=== PATIENT | male | born 1985 | race Caucasian/White ===

== ENCOUNTER 2019-04-26 13:46 | Inpatient (IN) ==
[2019-04-26] MEDS ORDERED: ZOFRAN ODT PO ONE (14:22)
[2019-04-26 14:45] LABS: BASO# 0.02 X1000 (0.0-0.2); BASO% 0.2 % (0.0-0.8); EOS# 0.03 X1000 (0.0-0.7); EOS% 0.3 % (0.0-10.0); HEMOGLOBIN 15.2 g/dL (14.0-18.0); IMM GRAN# 0.01 X1000 (0.0-0.04); IMM GRAN% 0.1 % (0.0-0.5); LYMPH# 1.45 X1000 (1.2-3.4); LYMPH% 15.7 % (20.5-51.1); MCH 29.6 PG (27-31); MCHC 33.8 g/dL (33-37); MCV 87.5 FL (81-99); MONO# 0.66 X1000 (0.11-0.59); MONO% 7.1 % (1.7-9.3); MPV 8.9 FL (7.4-10.4); NEUT# 7.09 X1000 (1.4-6.5); NEUT% 76.6 % (42.2-75.2); PLT 294 X1000 (130-400); RBC 5.14 XMIL (4.7-6.1); RDW 12.7 % (11.5-14.5); WBC 9.26 X1000 (4.8-10.8)
[2019-04-26 14:47] LABS: URINE SOURCE CLEAN CATCH
[2019-04-26 14:49] LABS: BILIRUBIN URINE NEGATIVE (NEGATIVE); BLOOD URINE MODERATE (NEGATIVE); COLOR YELLOW; GLUCOSE URINE NEGATIVE (NEGATIVE); KETONE URINE NEGATIVE (NEGATIVE); LEUKOCYTES URINE NEGATIVE (NEGATIVE); NITRITE URINE NEGATIVE (NEGATIVE); PROTEIN URINE 70 mg/dL (NEGATIVE); SP GRAVITY URINE 1.026; TURBIDITY URINE CLEAR (CLEAR); UR EPITHELIAL CELLS <10 /HPF (<10); URINE BACTERIA NEGATIVE /HPF; URINE RBC <10 /HPF (<10); URINE WBC <10 /HPF (<10); UROBILINOGEN URINE NORMAL (NORMAL)
[2019-04-26 15:08] LABS: AGAP 11; ALBUMIN 4.9 g/dL (3.5-5.0); ALKALINE PHOSPHATASE 82 U/L (32-122); BUN 10 mg/dL (8-22); CALCIUM 9.8 mg/dL (8.8-10.2); CHLORIDE 97 mmol/L (98-107); COSMO 276; CREATININE 1.1 mg/dL (0.7-1.2); ESTIMATED GFR > 60; GLUCOSE 92 mg/dL (70-104); GOT 297 U/L (10-34); GPT 102 U/L (10-44); LIPASE 13 U/L (13-60); POTASSIUM 3.9 mmol/L (3.5-5.1); SODIUM 139 mmol/L (136-145); TCO2 31 mmol/L (25-35); TOTAL PROTEIN 7.7 g/dL (6.3-8.3)
--- NOTE | 2019-04-26 15:19 | EKG Report ---
Test Performed on : 04/26/2019 2:27:31 PM Test Reason : Epigastric pain Blood Pressure : / mmHG Vent. Rate : 065 BPM Atrial Rate : 065 BPM P-R Int : 152 ms QRS Dur : 076 ms QT Int : 366 ms P-R-T Axes : 076 022 074 degrees QTc Int : 380 ms Normal sinus rhythm. Nonspecific T wave abnormality Abnormal ECG No previous ECGs available Unconfirmed Result
[2019-04-26 15:21] LABS: CK PROFILE > 20000 U/L (24-204)
[2019-04-26] MEDS ORDERED: NS 1,000 ML IV ONE (15:30)
[2019-04-26] MEDS: NS 1,000 ML IV ONE ×2 (15:51→17:08)
[2019-04-26 15:52] LABS: CK-MB 3.93 ng/mL (0.0-5.0)
--- NOTE | 2019-04-26 16:05 | PROVIDER DOCUMENTATION ---
This chart was entered by Kenisha Ruiz Scribe, acting as scribe for Bety Ko CRNP. HPI-Abdominal Pain/GI Problem - General Chief Complaint: Nausea/Vomiting Stated Complaint: ACID REFLUX/ABD PAIN Time Seen by Provider: 04/26/19 14:04 Source: patient Allergies/Adverse Reactions: Patient Allergies Allergy/AdvReac Type Severity Reaction Status Date / Time No Known Allergies Allergy Verified 04/26/19 14:10 Home Medications: Home Medication List Medication Instructions Recorded Confirmed Last Taken Type Levothyroxine Sodium 125 mcg PO QAM 02/01/19 04/26/19 Unknown History - History of Present Illness-ABD Nature of Presenting Problems: Patient is a 33yo M who presents with complaints of acid reflux, epigastric abdominal pain, nausea, and vomiting x4 days. Reports nausea is worse in the m orning. States he was previously diagnosed with GERD and took Prilosec but stopped years ago. Reports hx chronic diarrhea. Denies fever, CP, or SOB. Reports hx of throat cancer 10+ years ago and recently had a negative MRI. Non- toxic in appearance. Abdominal Pain Onset Location: reports: epigastric Pain Radiation: reports: no radiation Quality of Pain: reports: burning (with nausea) Severity in ED: reports: moderate Onset/Duration: reports: 4 days ago Timing: reports: still present, intermittent Activities at Onset: reports: light activity Exposure to sick contacts?: No Modifying Factors: improves with: antacids (minimal improvement) Associated Symptoms: reports: diarrhea (chronic), heartburn, nausea, vomiting. denies: back/neck pain, chest pain, fever/chills, shortness of breath Last BM: last night Dark Stools Present?: reports: none noticed Rectal Bleeding: reports: none # of Diarrhea Episodes: 2 Rectal Pain: reports: none # of Vomiting Episodes: 1 Emesis Description: reports: other (bile) Bruising or Bleeding Gums?: No Similar Symptoms Previously?: Yes Recently seen or treated by another doctor?: Yes (saw oncology 2 months prior for a scan) Review of Systems - Adult - REVIEW OF SYSTEMS - ADULT Constitutional: denies: chills, fever Eyes: reports: no symptoms reported Ears, Nose, Mouth & Throat: reports: no symptoms reported Cardiovascular: denies: chest pain, palpitations Respiratory: denies: cough, shortness of breath, wheezing Gastrointestinal: reports: see HPI, abdominal pain, diarrhea, frequent heartburn , nausea, vomiting Genitourinary: reports: no symptoms reported Musculoskeletal: denies: back pain, neck pain Integumentary: reports: no symptoms reported Neurological: reports: no symptoms reported Psychiatric: reports: no symptoms reported Endocrine: reports: no symptoms reported Past History - Adult - PAST MEDICAL HISTORY-ADULT Review of Records: reports: Nursing Assessment Review, Medications Reviewed, Social history reviewed & non-contributory. Major Childhood Illnesses: reports: denies history Cardiovascular: reports: denies history Respiratory: reports: denies history Gastrointestinal: reports: cancer (esophageal), GERD Genitourinary: reports: denies history Musculoskeletal: reports: arthritis, other fractures, orthopedic injury Hand Dominance: Right Handed Neurological: reports: denies history Psychiatric: reports: denies history Endocrine/Immune: reports: cancer (throat) Other Conditions: reports: other cancer (throat ca tx w/rx and chemo 2009) - PRIOR SURGERIES/PROCEDURES Surgical/Procedure History: reports: reviewed, not pertinent - PRIOR HOSPITALIZATIONS Prior Hospitalizations: reports: for other non-related - IMMUNIZATION STATUS Childhood Immunizations: See Nurse Assessment Flu Vaccine: See Nurse Assessment - FAMILY HISTORY Family History: reviewed, not pertinent - SOCIAL HISTORY Smoking: quit greater than 1 year Substance Use: alcohol, marijuana Alcohol Use Frequency: once a month Number of drinks per typical drinking period:: 3-4 drinks Living Situation: family Physical Exam-General - PHYSICAL EXAM-ADULT Initial Vital Signs Reviewed: Yes - CONSTITUTIONAL General Appearance: appears well, alert, no apparent distress, thin. negative: lethargic, slow to respond, obtunded - EYES Eyes: PERRL/EOMI, pink conjunctivae. negative: EOM palsy, scleral icterus - HEAD, EARS, NOSE, MOUTH & THROAT HENMT: normocephalic/atraumatic, moist mucous membranes, other (raspy voice but is baseline per patient since throat cancer 4 years prior. pt had scan 2 months prior and was cancer free). negative: angioedema - NECK Neck: non-tender, full range of motion, supple, normal inspection - RESPIRATORY Respiratory: chest non-tender, lungs clear, normal breath sounds, no pleuratic chest pain, no respiratory distress, no accessory muscle use. negative: crackles, rales, rhonchi, stridor, wheezing - CARDIOVASCULAR Cardiovascular: normal peripheral pulses, regular rate, rhythm - CHEST (BREASTS) Chest/Breast: deferred - GASTROINTESTINAL (ABDOMEN) Abdominal Exam: normal bowel sounds, soft, tenderness (epigastric TTP), other (c/o nausea). negative: guarding, rigid, rebound - GENITOURINARY Male Genitalia: deferred Rectal Exam: deferred Hemoccult Exam: deferred - LYMPHATIC Lymphatic: no adenopathy - MUSCULOSKELETAL Back Exam: no CVA tenderness, no vertebral tenderness Extremity: normal range of motion, non-tender, normal gait, normal inspection - SKIN Integumentary: normal color, warm/dry. negative: cyanosis, jaundice, mottled, pallor - NEUROLOGIC Neurologic: grossly normal. negative: abnormal gait, aphasia, EOM palsy - PSYCHIATRIC Psych/Mental Status: normal mood/affect, normal thought content, normal thought process, oriented x 3 Progress - PLAN OF CARE/RESULTS Progress/Plan/Lab Results: Vital Signs - 8 hr 04/26/19 13:57 Temperature 97.9 F Pulse Rate 83 Respiratory Rate 16 Blood Pressure 120/82 O2 Sat by Pulse Oximetry 98 Lab results, imaging results, and need for admission discussed with patient who agrees with and verbalizes understanding. Result Diagrams: 04/26/19 14:34 04/26/19 14:34 - REASSESSMENT Reassessment #1 Time Reassessed: 15:01 (pt is resting in the bed) Status: unchanged Reassessment #2 Time Reassessed: 17:09 (pt feels some better family is with him at bedside) Status: improving - EKG 1 Time of EKG reading by physician:: 14:27 EKG Read and Signed by:: Cindy Mcelroy EKG Interpretation (*Must complete 3 of following elements*): Abnormal Rate: 65 Rhythm: nsr Deshler: normal QRS: normal WI Interval: normal ST Wave: normal Comments: nonspecific T wave abnormality - CT/MRI 1 CT Study: Abdomen, Pelvis Impression: See EMR Report ([facility] - [address], [address], [place] [address] [facility] - [address] [place] [address] Department of Imaging Patient: PAYAL ROLDAN Date: 04/26/19MR#: [id number] : 1985ADM Status: REG ERAt#: [id number] Age/Sex: 33/MRoom/Bed: Loc: P.ED Ordering Physician: Bety Baker Family Physician: Jacob Rubio MD Reason for Procedure: Epigastric pain; elevated liver enzymes Signed EXAM: CT ABD/PELVIS W/IV CONT ONLY HISTORY: Epigastric pain; elevated liver enzymes TECHNIQUE: CT abdomen and pelvis with intravenous contrast, but without oral contrast. COMPARISON: None. FINDINGS: Tiny left basilar infiltrates. No calcified gallstones or adjacent inflammation. No focal hepatic abnormality. Normal spleen, pancreas, adrenal glands, and kidneys. No hydronephrosis. Normal aorta. No bowel obstruction. The appendix is not clearly identified. No abscess. The urinary bladder is only mildly distended. Normal prostate. IMPRESSION: Tiny left basilar infiltrates. No definite he patic abnormality This exam was performed using automated exposure control, adjustment of mA or kV according to patient size, and/or use of iterative reconstruction technique. Electronically signed by Bong Lazcano 04/26/2019 4:52 PM 04/26/19 1652 Interpreting Physician: Bong Lazcano MD Dictated Date/Time: 04/26/19 1649 cc: Bety Ko; Jacob Rubio MD) - CONSULTS/PCP/HOSPITALIST Notification #1 *Consult/PCP/Hospitalist*: hospitalist dr mock Time Discussed: 17:08 Reason/Comments: Rhabdomyolysis; elevated LFTs; hematuria Consult Disposition: Will see in ED, Admit Departure - Departure Date of Disposition Decision: 04/26/19 Time of Disposition Decision: 17:08 DIAGNOSIS: Epigastric pain, Elevated liver enzymes Rhabdomyolysis Qualifiers: Rhabdomyolysis type: non-traumatic Qualified Code(s): M62.82 - Rhabdomyolysis Nausea and vomiting Qualifiers: Vomiting type: unspecified Vomiting Intractability: unspecified Qualified Code( s): R11.2 - Nausea with vomiting, unspecified Hematuria Qualifiers: Hematuria type: unspecified type Qualified Code(s): R31.9 - Hematuria, unspecified Disposition: ADMITTED INPATIENT 09 Certified Medical Emergency: Emergent Condition: Stable Referrals and Follow-Ups: Jacob Rubio MD [Primary Care Provider] - - Critical Care Note This patient required my direct & personal management of CC.: Yes Total Time (mins): 45 Critical Care Statement: This patient required my direct personal management to treat or rule out processes, the absence of which, could potentiallly result in sudden, clinically significant life or limb threatening deterioration. Attestation - Physician/ SHEBA Attestation Patient care was provided by Advanced Practice Provider:: Yes Advanced Practice Provider:: Bety Ko Advanced Practice Provider documentation review:: The Mid-level provider documentation, treatment plan and medical decision making was reviewed by the physician who agrees with all treatment and medical decision making by the MLP. The physician spent face to face time with patient:: No Advanced Practice Provider documentation review:: Supervising physician onsite and consulted in the evaluation and care of this patient. The physician did not have a face to face encounter with the patient. This chart was documented by the indicated scribe, (Kenisha Ruiz Scribe) and accurately reflects the services I performed and decisions made by me, Bety Ko CRNP, as attested by the provider's signature.
--- NOTE | 2019-04-26 16:54 | Diag Imaging Result Doc PS360 ---
EXAM: CT ABD/PELVIS W/IV CONT ONLY HISTORY: Epigastric pain; elevated liver enzymes TECHNIQUE: CT abdomen and pelvis with intravenous contrast, but without oral contrast. COMPARISON: None. FINDINGS: Tiny left basilar infiltrates. No calcified gallstones or adjacent inflammation. No focal hepatic abnormality. Normal spleen, pancreas, adrenal glands, and kidneys. No hydronephrosis. Normal aorta. No bowel obstruction. The appendix is not clearly identified. No abscess. The urinary bladder is only mildly distended. Normal prostate. IMPRESSION: Tiny left basilar infiltrates. No definite hepatic abnormality This exam was performed using automated exposure control, adjustment of mA or kV according to patient size, and/or use of iterative reconstruction technique. Electronically signed by Bong Lazcano 04/26/2019 4:52 PM
[2019-04-26] MEDS ORDERED: TYLENOL PO PRN (18:10)
[2019-04-26] MEDS ORDERED: SODIUM BICARBONATE 8.4% 150 MEQ in D5W 1,000 ML IV SCH (20:00)
[2019-04-26] MEDS: ZOFRAN IV PRN (20:39)
[2019-04-26] MEDS: NS 1,000 ML IV SCH (20:47)
--- NOTE | 2019-04-26 21:50 | HISTORY AND PHYSICAL ---
CHIEF COMPLAINT: Nausea. HISTORY OF PRESENT ILLNESS: The patient is a 33-year-old male who has a known history of GI issues. He has chronic reflux. He has been having some epigastric pain for the past couple of days as well as nausea and vomiting. He presented to the hospital secondary to that. He did take Prilosec years ago, but stopped it. Notes he has chronic diarrhea. He has difficulty swallowing due to his throat cancer 10 years ago. He denies taking any creatine or muscle supplements. Does note that he did 50 or so pushups yesterday to impress his cousin. Notes that his urine is always dark. REVIEW OF SYSTEMS: As noted above. The patient does note that he saw his oncologist 2 months ago and was told that he was still clear from cancer. Denies any chest pain or palpitation. Denies any fevers or chills. Denies any headaches, blurred vision, change in vision. Denies any focalized numbness, tingling, weakness. Does note that he aches all over, but does not have any significant muscle aches. States his urine is always dark. Denies any hematuria, hematemesis, hematochezia, or melena. Does have chronic diarrhea that has not really changed. 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 Has history of reflux. FAMILY HISTORY: Noncontributory. SOCIAL HISTORY: He does note that he drinks on a regular basis. Does use marijuana occasionally. States he stopped smoking approximately a year ago. He is currently employed. PHYSICAL EXAMINATION: VITAL SIGNS: Reviewed. Temperature 97.9 degrees, pulse 83, respiratory rate 16, BP 120/82, saturating 98% on room air. GENERAL: Patient is awake, pleasant. He is in no current respiratory distress. He is sitting up on the side of the bed. HEENT: Normocephalic. NECK: Supple. CARDIOVASCULAR: Regular rate. CHEST: Clear and nonlabored. ABDOMEN: Soft, nontender, and nondistended. EXTREMITIES: Moves all extremities well. No edema. NEUROLOGIC: No focal neurological changes. SKIN: Warm and dry. No rashes. LABORATORIES: CBC and CMP effectively normal. His CPK is elevated at greater than 20,000. AST 297, ALT 102. ASSESSMENT: 1. Acute rhabdomyolysis of undetermined origin, likely secondary to his increased physical activity, as well as his decreased oral intake. 2. Acute hepatitis of undetermined origin. Patient does have a longstanding history of drinking and his AST is 3 times his ALT, which certainly could relate to that. PLAN: We are going to admit patient to the hospital, place him on Librium p.r.n., and we are going to start bicarbonate drip and intravenous fluids. Recheck in the a.m. Further orders as needed. cc: Mason Franklin MD
[2019-04-26] MEDS ORDERED: SODIUM BICARBONATE 8.4% ONE (23:59)
[2019-04-27] MEDS ORDERED: D5W 1,000 ML ONE
[2019-04-27] MEDS: NS 1,000 ML IV SCH ×4 (04:36→21:28)
[2019-04-27] MEDS: SYNTHROID PO SCH ×2 (06:48)
[2019-04-27] MEDS: PRILOSEC PO SCH (06:50)
[2019-04-27 06:55] LABS: HEMATOCRIT 44.3 % (42.0-52.0); HEMOGLOBIN 14.7 g/dL (14.0-18.0); MCH 28.9 PG (27-31); MCHC 33.2 g/dL (33-37); MCV 87.2 FL (81-99); MPV 9.3 FL (7.4-10.4); RBC 5.08 XMIL (4.7-6.1); RDW 12.6 % (11.5-14.5); WBC 7.75 X1000 (4.8-10.8)
[2019-04-27] MEDS ORDERED: SYNTHROID PO SCH (07:00)
[2019-04-27] MEDS: ZOFRAN IV PRN ×2 (07:12→21:28)
[2019-04-27 07:13] LABS: AGAP 11; ALBUMIN 4.3 g/dL (3.5-5.0); ALKALINE PHOSPHATASE 74 U/L (32-122); BUN 8 mg/dL (8-22); CALCIUM 9.1 mg/dL (8.8-10.2); CHLORIDE 98 mmol/L (98-107); COSMO 276; CREATININE 0.9 mg/dL (0.7-1.2); ESTIMATED GFR > 60; GLUCOSE 98 mg/dL (70-104); GOT 246 U/L (10-34); GPT 90 U/L (10-44); POTASSIUM 4.1 mmol/L (3.5-5.1); SODIUM 139 mmol/L (136-145); TCO2 29 mmol/L (25-35); TOTAL PROTEIN 7.1 g/dL (6.3-8.3)
[2019-04-27 07:55] LABS: CK-MB 2.52 ng/mL (0.0-5.0)
--- NOTE | 2019-04-27 08:37 | Diag Imaging Result Doc PS360 ---
EXAM: US ABDOMEN-COMPLETE - 04/27/2019 HISTORY: elevated wbc TECHNIQUE: Ultrasound abdomen COMPARISON: 04/26/2019 CT abdomen/pelvis FINDINGS: There are no abnormalities of the liver or spleen identified. Doppler image shows hepatopedal flow in the portal vein. There is no ascites seen. The gallbladder is visualized and demonstrates no abnormalities. There is no evidence of gallstones. The technologist reports negative sonographic Rodriguez's sign. The common bile duct is normal caliber at 3 mm. Visualized portions of the pancreas are unremarkable. There are no abnormalities of the bilateral kidneys identified. Abdominal aorta and IVC appear normal caliber. IMPRESSION: No visible abnormality. Electronically signed by Jared Navas 04/27/2019 8:35 AM
[2019-04-27] MEDS ORDERED: NORVASC PO SCH (13:30)
[2019-04-27] MEDS: SODIUM BICARBONATE 8.4% 150 MEQ in D5W 1,000 ML IV SCH (14:15)
--- NOTE | 2019-04-27 20:57 | PROGRESS NOTE ---
DATE: 04/27/2019 SUBJECTIVE: Patient has no complaints. States he is feeling okay. States he really would like to go home. He is having some muscle aches. Denies any fevers or chills. Denies any dysuria. PHYSICAL EXAMINATION: Vital signs: Temperature 98.1 degrees, pulse 81, respiratory rate 18, BP 161/95. General: Patient is awake, currently in no distress. HEENT: Normocephalic. Neck: Supple. Cardiovascular: Regular rate. Chest: Clear. Abdomen: Soft. Extremities: Moves all extremities. Neurologic: No changes. ASSESSMENT: 1. Rhabdomyolysis. CPK is still elevated at 18,000. 2. Acute hepatitis. Ultrasound is negative. Patient denies alcohol. Will continue to follow. We will continue intravenous fluids and sodium bicarbonate. cc: Mason Franklin MD
[2019-04-28] MEDS: SODIUM BICARBONATE 8.4% 150 MEQ in D5W 1,000 ML IV SCH ×2 (04:27→21:24)
[2019-04-28] MEDS: NS 1,000 ML IV SCH ×4 (04:27→21:20)
[2019-04-28 06:14] LABS: HEMATOCRIT 45.3 % (42.0-52.0); HEMOGLOBIN 15.3 g/dL (14.0-18.0); MCH 29.2 PG (27-31); MCHC 33.8 g/dL (33-37); MCV 86.5 FL (81-99); RBC 5.24 XMIL (4.7-6.1); RDW 12.2 % (11.5-14.5); WBC 7.73 X1000 (4.8-10.8)
[2019-04-28] MEDS: PRILOSEC PO SCH (06:16)
[2019-04-28] MEDS: SYNTHROID PO SCH ×2 (06:16→06:17)
[2019-04-28 06:42] LABS: AGAP 13; ALBUMIN 4.5 g/dL (3.5-5.0); ALKALINE PHOSPHATASE 77 U/L (32-122); BUN 5 mg/dL (8-22); CALCIUM 9.3 mg/dL (8.8-10.2); CHLORIDE 95 mmol/L (98-107); COSMO 269; ESTIMATED GFR > 60; GLUCOSE 102 mg/dL (70-104); GOT 194 U/L (10-34); GPT 84 U/L (10-44); MAGNESIUM 1.6 mg/dL (1.5-2.7); POTASSIUM 3.5 mmol/L (3.5-5.1); SODIUM 136 mmol/L (136-145); TCO2 29 mmol/L (25-35); TOTAL PROTEIN 7.3 g/dL (6.3-8.3)
[2019-04-28] MEDS: NORVASC PO SCH (10:32)
--- NOTE | 2019-04-28 14:52 | PROGRESS NOTE ---
DATE: 04/28/2019 SUBJECTIVE: Patient notes that his nausea is actually improving. States that he is having some muscle aches but it also is improving. Denies any fevers or chills. PHYSICAL EXAMINATION: Vital Signs: Reviewed. Temp 98 degrees, pulse 94, respiratory rate 18, BP 123/83 to 156/111. General: Patient is in no respiratory distress. He is pleasant. He is sitting in the bed. HEENT: Normocephalic. Neck: Supple. Cardiovascular: Regular rate. Chest: Clear. Abdomen: Soft. Extremities: Moves all extremities. Neurologic: No changes. ASSESSMENT: 1. Acute rhabdomyolysis. 2. Hypertension. 3. Chronic hepatitis, ultrasound negative. PLAN: The patient's CPK went from greater than 20,000 down to 14,000. We will continue fluids and bicarb drip. cc: Mason Franklin MD
[2019-04-28] MEDS: ZOFRAN IV PRN (22:52)
[2019-04-29 05:42] LABS: HEMATOCRIT 44.6 % (42.0-52.0); HEMOGLOBIN 15.2 g/dL (14.0-18.0); MCH 29.3 PG (27-31); MCHC 34.1 g/dL (33-37); MCV 85.9 FL (81-99); MPV 8.8 FL (7.4-10.4); RBC 5.19 XMIL (4.7-6.1); RDW 12.3 % (11.5-14.5); WBC 8.34 X1000 (4.8-10.8)
[2019-04-29] MEDS: SYNTHROID PO SCH ×5 (05:52→09:28)
[2019-04-29] MEDS: PRILOSEC PO SCH ×2 (05:52→06:10)
[2019-04-29] MEDS: NS 1,000 ML IV SCH ×3 (05:55→23:39)
[2019-04-29 06:19] LABS: AGAP 13; ALBUMIN 4.5 g/dL (3.5-5.0); ALKALINE PHOSPHATASE 78 U/L (32-122); BUN 5 mg/dL (8-22); CALCIUM 9.4 mg/dL (8.8-10.2); CHLORIDE 98 mmol/L (98-107); COSMO 277; ESTIMATED GFR > 60; GLUCOSE 104 mg/dL (70-104); GOT 156 U/L (10-34); GPT 78 U/L (10-44); MAGNESIUM 1.6 mg/dL (1.5-2.7); POTASSIUM 3.5 mmol/L (3.5-5.1); SODIUM 140 mmol/L (136-145); TCO2 29 mmol/L (25-35); TOTAL PROTEIN 7.3 g/dL (6.3-8.3)
[2019-04-29] MEDS: NORVASC PO SCH (09:27)
[2019-04-29] MEDS: SODIUM BICARBONATE 8.4% 150 MEQ in D5W 1,000 ML IV SCH (13:00)
--- NOTE | 2019-04-29 13:35 | PROGRESS NOTE ---
DATE: 04/29/2019 SUBJECTIVE: Patient notes that his nausea is improving, his muscle aches are improving. Denies any fevers or chills. PHYSICAL: Vital Signs: Reviewed. Temperature 98 degrees, pulse 94, respiratory 18, BP 116/111 to 123/83. General: Patient is awake, pleasant. He is in no distress. HEENT: Normocephalic. Neck: Supple. CV: Regular rate. Chest: Clear, nonlabored. Abdomen: Soft, nondistended. Extremities: Moves all extremities. ASSESSMENT: 1. Hypertension. We will continue to follow his blood pressures. They are much improved currently. They were elevated when he was stressed and anxious. 2. Hypothyroidism. TSH is elevated in a patient with a known history of thyroid problems who does not take his thyroid medications on any regular basis. I am going to increase his Synthroid to 150. 3. Rhabdomyolysis. CPK has improved although currently down to 13,700. Will continue sodium bicarb and will follow. cc: Mason Franklin MD
[2019-04-30] MEDS: NS 1,000 ML IV SCH (05:00)
[2019-04-30] MEDS: SODIUM BICARBONATE 8.4% 150 MEQ in D5W 1,000 ML IV SCH (05:06)
[2019-04-30 05:53] LABS: HEMATOCRIT 44.3 % (42.0-52.0); MCH 29.1 PG (27-31); MCHC 33.9 g/dL (33-37); MPV 8.9 FL (7.4-10.4); RBC 5.15 XMIL (4.7-6.1); RDW 12.4 % (11.5-14.5); WBC 8.74 X1000 (4.8-10.8)
[2019-04-30 05:57] LABS: AGAP 13; ALBUMIN 4.5 g/dL (3.5-5.0); ALKALINE PHOSPHATASE 81 U/L (32-122); BUN 5 mg/dL (8-22); CALCIUM 9.4 mg/dL (8.8-10.2); CHLORIDE 99 mmol/L (98-107); COSMO 275; CREATININE 0.9 mg/dL (0.7-1.2); ESTIMATED GFR > 60; GLUCOSE 94 mg/dL (70-104); GOT 98 U/L (10-34); GPT 65 U/L (10-44); MAGNESIUM 1.6 mg/dL (1.5-2.7); POTASSIUM 3.6 mmol/L (3.5-5.1); SODIUM 139 mmol/L (136-145); TCO2 28 mmol/L (25-35); TOTAL PROTEIN 7.6 g/dL (6.3-8.3)
[2019-04-30] MEDS: SYNTHROID PO SCH (06:28)
[2019-04-30] MEDS: PRILOSEC PO SCH (06:28)
[2019-04-30] MEDS ORDERED: SYNTHROID PO SCH (07:00)
[2019-04-30 09:11] VITALS: BP 157/101
[2019-04-30] MEDS: ZOFRAN IV PRN (09:25)
--- NOTE | 2019-05-01 14:59 | DISCHARGE SUMMARY ---
ADMISSION DATE: 04/26/2019 DISCHARGE DATE: 04/30/2019 DISCHARGE DIAGNOSES: 1. Rhabdomyolysis. CPK greater than 20,000 on admit, less than 4000 on discharge. 2. Acute hepatitis of undetermined origin. In fact, his ALT/AST both improved during the hospital stay. Ultrasound was negative. 3. Chronic volume dehydration. 4. Chronic dysphagia secondary to his throat cancer 10 years ago. CONSULTATIONS: None. PROCEDURES: None. BRIEF HOSPITAL COURSE: The patient is a 33-year-old male who presented to the hospital with nausea and abdominal pain. He denied actually muscle aches to begin with. However, after placing him on IV fluids and sodium bicarbonate his CPK dropped from greater than 20,000 down to around 13,000. He states that his nausea was actually resolved. His muscle aches, which he did realize how bad was hurting was completely gone and he was feeling better. We watched her 1 more day. Continued IV fluids. On discharge, he is drinking without any difficulty. Notes his nausea is improved. His AST/ALT both have dropped to 98 and 65 respectively. CPK last check was still elevated, although tremendously improved. Notes the urine was clear. He was feeling better and he was desperate to get home. DISPOSITION: Patient will be discharged home. Greater than 30 minutes was spent in total care. Discussed with him he needs follow up outpatient with primary care Dr. Jacob Trotter to recheck a CPK in about a week to make sure that this has continued to improve. Discussed the importance of hydration. Greater than 30 minutes was spent in total care. No changes made on his chronic home medications, diet or activity. cc: Mason Franklin MD
== END 2019-04-30 09:45 | disposition home or self-care (01) | DRG 558 ==
LOC: P.MEDSURG 13:46 → P.ED 13:46 → OBSVTOIN 18:24
PROVIDERS: ATTEND Family Medicine